=== PATIENT | female | born 1975 | race Caucasian/White ===

== ENCOUNTER 2016-06-16 21:03 | Emergency (ER) | payer OTHER ==
[~2016-06-16] VITALS: Ht 157.5 cm; Wt 74.8 kg
[2016-06-17] MEDS ORDERED: CELEXA40 MG PO (03:15)
[2016-06-17] MEDS ORDERED: MOBIC15 MG PO (03:15)
[2016-06-17] MEDS ORDERED: DEPAKOTE500 MG PO (03:15)
== END 2016-06-16 22:00 | disposition short-term general hospital (02) ==
LOC: ER 21:03
DX: M25.462 Effusion, left knee (principal); M19.90 Unspecified osteoarthritis, unspecified site
CPT/HCPCS: J1885

== ENCOUNTER → 2016-07-01 | Outpatient (CLI) | payer OTHER ==
[~2016-07-01] MED LIST: CELEXA40 MG PO; DEPAKOTE500 MG PO; MOBIC15 MG PO
== END | disposition short-term general hospital (02) ==
LOC: CLORTH 09:38
DX: M76.892 Other specified enthesopathies of left lower limb, excluding foot (principal); M25.562 Pain in left knee